=== PATIENT | male | born 1990 | race Caucasian/White ===

== ENCOUNTER 2019-03-20 15:16 | Emergency (ER) | payer OTHER ==
[2019-03-20 15:27] VITALS: BP 136/92; PULSE 113; RESP 18; TEMP 99
--- NOTE | 2019-03-20 15:43 | ED ---
Upper Extremity HPI - General Chief Complaint: Extremity Injury, Upper Stated Complaint: Elbow injury Time Seen by Provider: 03/20/19 15:26 Source: patient, RN notes reviewed Mode of arrival: ambulatory Limitations: no limitations - History of Present Illness Initial Comments: 28-year-old male presents emergency Department chief complaint of left elbow injury. Patient states he is tripped this morning felt directly onto his left elbow and with steps. Patient states that he that he just bruised it first but states pain is worsened the point where he cannot move his elbow secondary to pain. Denies any paresthesias denies any discoloration there is moderate swelling to her left elbow. Patient is right-hand dominant. - Related Data Previous Rx's Medication Instructions Recorded Ibuprofen [Motrin] 600 mg PO Q8HR PRN #30 tab 03/20/19 Allergies Allergy/AdvReac Type Severity Reaction Status Date / Time No Known Allergies Allergy Verified 03/20/19 15:29 Review of Systems ROS Statement: Those systems with pertinent positive or pertinent negative responses have been documented in the HPI. ROS Other: All systems not noted in ROS Statement are negative. Past Medical History Past Medical History: No Reported History History of Any Multi-Drug Resistant Organisms: None Reported Past Surgical History: No Surgical Hx Reported Past Psychological History: No Psychological Hx Reported Smoking Status: Current every day smoker Past Alcohol Use History: Occasional Past Drug Use History: None Reported General Exam Limitations: no limitations General appearance: alert, in no apparent distress Head exam: Present: atraumatic, normocephalic, normal inspection Respiratory exam: Present: normal lung sounds bilaterally. Absent: respiratory distress, wheezes, rales, rhonchi, stridor Cardiovascular Exam: Present: normal rhythm, tachycardia, normal heart sounds. Absent: systolic murmur, diastolic murmur, rubs, gallop, clicks Extremities exam: Present: other (Left elbow there is mild swelling, severe tenderness diffusely, very limited range of motion neurovascular intact left arm with cap refill less than 2 seconds radial pulses equal bilaterally) Skin exam: Present: warm, dry, intact, normal color. Absent: rash Course Vital Signs 03/20/19 15:25 Temperature 99 F Pulse Rate 113 H Respiratory 18 Rate Blood Pressure 136/92 O2 Sat by Pulse 99 Oximetry Medical Decision Making - Medical Decision Making 28-year-old male present emergency from for left elbow injury x-rays were obtained no definite fracture on x-ray. Patient has clinical symptoms of a fracture and we placed in sling and follow-up with orthopedics. He has neurovascular intact. Patient will return for any worsening symptoms Disposition Clinical Impression: Left elbow contusion Disposition: HOME SELF-CARE Condition: Stable Instructions (If sedation given, give patient instructions): Suspected Fracture (ED) Additional Instructions: Please return to the Emergency Department if symptoms worsen or any other concerns. Prescriptions: Ibuprofen [Motrin] 600 mg PO Q8HR PRN #30 tab PRN Reason: Pain Is patient prescribed a controlled substance at d/c from ED?: No Referrals: Aime Pierre DO [Primary Care Provider] - 1-2 days Mack Cortes DO [Medical Doctor] - 1-2 days Time of Disposition: 16:05
[2019-03-20] MEDS ORDERED: HYDROcodone/APAP 5-325MG 1 EACH TAB PO STA (15:46)
--- NOTE | 2019-03-20 15:52 | XR ---
EXAMINATION TYPE: XR elbow limited LT DATE OF EXAM: 03/20/2019 COMPARISON: NONE HISTORY: Elbow pain TECHNIQUE: 2 views FINDINGS: I see no fracture nor dislocation. Joint spaces are normal. There is no sign of elbow joint effusion. IMPRESSION: Negative left elbow exam.
[2019-03-20] MEDS ORDERED: KETOROLAC 60 MG/2 ML VIAL IM STA (15:58)
== END 2019-03-20 16:10 | disposition home or self-care (01) ==
LOC: SUPCPDRO 15:16 → EC 15:16
DX: S50.02XA Contusion of left elbow, initial encounter (principal); F17.200 Nicotine dependence, unspecified, uncomplicated; Z53.8 Procedure and treatment not carried out for other reasons; W01.0XXA Fall on same level from slipping, tripping and stumbling without subsequent striking against object, initial encounter
CPT/HCPCS: 73070; 99283; 96372; J1885

== ENCOUNTER 2019-11-29 18:00 | Emergency (ER) | payer OTHER ==
[2019-11-29 18:06] VITALS: RESP 18
[2019-11-29] MEDS ORDERED: LIDOCAINE 1% INJ 10MG/ML (20 ML MDV) SQ ONE (18:32)
--- NOTE | 2019-11-29 18:39 | ED ---
Wound/Laceration HPI - General Chief Complaint: Wound/Laceration Stated Complaint: Leg Injury Time Seen by Provider: 11/29/19 18:20 Source: patient Mode of arrival: ambulatory Limitations: no limitations - History of Present Illness Initial Comments: 29-year-old male patient presents to the emergency department today for evaluation of a laceration to the right lower leg. Patient states he was at work couple of hours ago when a piece of metal on a conveyor belt rubbed across his leg causing a laceration. Patient states there is significant pain to the area swishes movement of his foot. He is concerned he cut his muscle. Patient states his last tetanus vaccine was in August 2019. Denies any other injuries or concerns. Patient denies any headache, neck pain, back pain, chest pain, shortness of breath, dizziness, weakness, abdominal pain, nausea, vomiting, or difficulties with bowel movements or urination. - Related Data Previous Rx's Medication Instructions Recorded Ibuprofen [Motrin] 600 mg PO Q8HR PRN #30 tab 03/20/19 Ondansetron Odt [Zofran Odt] 4 mg PO Q8HR PRN #10 tab 03/20/19 Allergies Allergy/AdvReac Type Severity Reaction Status Date / Time No Known Allergies Allergy Verified 03/20/19 15:29 Review of Systems ROS Statement: Those systems with pertinent positive or pertinent negative responses have been documented in the HPI. ROS Other: All systems not noted in ROS Statement are negative. Past Medical History Past Medical History: No Reported History History of Any Multi-Drug Resistant Organisms: None Reported Past Surgical History: No Surgical Hx Reported Past Psychological History: No Psychological Hx Reported Smoking Status: Current every day smoker Past Alcohol Use History: Occasional Past Drug Use History: None Reported General Exam Limitations: no limitations General appearance: alert, in no apparent distress, other (This is a well- developed, well-nourished adult male patient in no acute distress. Vital signs upon presentation are temperature 98.3F, pulse 89, respirations 18, blood pressure 147/91, pulse ox 97% on room air.) Respiratory exam: Present: normal lung sounds bilaterally. Absent: respiratory distress, wheezes, rales, rhonchi, stridor Cardiovascular Exam: Present: regular rate, normal rhythm, normal heart sounds. Absent: systolic murmur, diastolic murmur, rubs, gallop, clicks Extremities exam: Present: full ROM, tenderness (Tenderness surrounding the laceration to the right lateral calf.), normal capillary refill, other (There is a 4 cm laceration noted to the right lower leg, located over the right lateral calf. Bleeding is controlled. Skin is otherwise pink, warm, dry. Cap refills less than 3 seconds. Pedal and posttibial pulses 2+ and equal bilaterally.). Absent: normal inspection, pedal edema, joint swelling, calf tenderness Neurological exam: Present: alert, oriented X3, CN II-XII intact Psychiatric exam: Present: normal affect, normal mood Skin exam: Present: warm, dry, intact, normal color. Absent: rash Course Vital Signs 11/29/19 11/29/19 18:02 19:18 Temperature 98.3 F 98.0 F Pulse Rate 89 74 Respiratory 18 18 Rate Blood Pressure 147/91 133/78 O2 Sat by Pulse 97 100 Oximetry Procedures - Laceration Laceration #1 Consent Obtained: verbal consent Indication: laceration Site: lower extremity Size (cm): 5 Description: linear Depth: simple, single layer Anesthetic Used: lidocaine 1% Anesthesia Technique: local infiltration Amount (mls): 10 Pre-repair: irrigated extensively Type of Sutures: nylon Size of Sutures: 5-0 Number of Sutures: 6 Technique: simple, interrupted Patient Tolerated Procedure: well, no complications Medical Decision Making - Medical Decision Making 21-year-old male patient presented to the emergency department today for evaluation of laceration to the right lower leg. Physical examination did reveal 5 cm laceration noted to the right lower leg laterally. There is mild bleeding noted. This is a superficial laceration. Was cleansed and repaired as documented. Patient's tetanus is up-to-date in August 2019. He is educated regarding wound care and signs or symptoms of infection. He is instructed to follow-up with his primary care physician for recheck in 1-2 days. Return parameters discussed in detail. He verbalizes understanding and agrees with this plan. Disposition Clinical Impression: Laceration of right lower leg Disposition: HOME SELF-CARE Condition: Good Instructions (If sedation given, give patient instructions): Care For Your Stitches (ED), Laceration (ED) Additional Instructions: Keep wound clean and dry. Cleanse twice daily with warm water and antibacterial soap. Monitor for signs or symptoms of infection including but not limited to redness, swelling, drainage of pus, fever, or chills. Follow-up through primary care physician for recheck in 1-2 days. Return to the hospital emergency department to have stitches removed in 14 days. Return for any other new, worsening, or concerning symptoms. Is patient prescribed a controlled substance at d/c from ED?: No Referrals: None,Stated [Primary Care Provider] - 1-2 days Time of Disposition: 19:09
[2019-11-29] MEDS ORDERED: IBUPROFEN 600 MG TAB PO STA (18:54)
[2019-11-29 19:19] VITALS: BP 133/78; PULSE 74; TEMP 98
== END 2019-11-29 19:18 | disposition home or self-care (01) ==
LOC: EC 18:00
DX: S81.811A Laceration without foreign body, right lower leg, initial encounter (principal); F17.200 Nicotine dependence, unspecified, uncomplicated; W26.8XXA Contact with other sharp object(s), not elsewhere classified, initial encounter; Y93.89 Activity, other specified; Y92.69 Other specified industrial and construction area as the place of occurrence of the external cause; Y99.0 Civilian activity done for income or pay
CPT/HCPCS: 99282; 12002; J2001